=== PATIENT | female | born 1950 | race Caucasian/White ===

== ENCOUNTER → 2018-12-24 09:44 | Outpatient (CLI) | payer MEDICARE, OTHER, SELFPAY ==
--- NOTE | 2018-12-24 | DI.MG.S_ITS ---
BILATERAL DIGITAL SCREENING MAMMOGRAM 3D/2D WITH CAD: 12/24/2018 CLINICAL: Routine screening. Comparison is made to exams dated: 11/11/2017 mammogram, 11/10/2015 mammogram, and 10/08/2013 mammogram - [facility]. The tissue of both breasts is heterogeneously dense. This may lower the sensitivity of mammography. Current study was also evaluated with a Computer Aided Detection (CAD) system. No significant masses, calcifications, or other findings are seen in either breast. There has been no significant interval change. IMPRESSION: NEGATIVE There is no mammographic evidence of malignancy. A 1 year screening mammogram is recommended. This exam was interpreted at Station ID: [id number]. NOTE: For mammograms, a report in lay terms will be sent to the patient. Approximately 15% of breast malignancies will not be visualized mammographically. In the management of a palpable breast mass, a negative mammogram must not discourage biopsy of a clinically suspicious lesion. Electronically Signed By: Arturo aldana/mario alberto:12/24/2018 16:33:53 letter sent: Normal Exam ACR BI-RADS Category 1: Negative 3341F
== END ==
PROVIDERS: Family Provider Family Medicine; PCP Family Medicine; Visit Provider Family Medicine
DX: Z12.31 Encounter for screening mammogram for malignant neoplasm of breast (principal)
CPT/HCPCS: 77063; 77067

== ENCOUNTER → 2021-03-21 11:23 | Outpatient (CLI) | payer MEDICARE, OTHER, SELFPAY ==
--- NOTE | 2021-03-21 | DI.MG.S_ITS ---
BILATERAL DIGITAL SCREENING MAMMOGRAM 3D/2D WITH CAD: 03/21/2021 CLINICAL: Routine screening. Comparison is made to exams dated: 12/24/2018 mammogram, 11/11/2017 mammogram, and 11/10/2015 mammogram - [facility]. The tissue of both breasts is heterogeneously dense. This may lower the sensitivity of mammography. Current study was also evaluated with a Computer Aided Detection (CAD) system. No significant masses, calcifications, or other findings are seen in either breast. There has been no significant interval change. IMPRESSION: NEGATIVE There is no mammographic evidence of malignancy. A 1 year screening mammogram is recommended. This exam was interpreted at Station ID: [id number]. NOTE: For mammograms, a report in lay terms will be sent to the patient. Approximately 15% of breast malignancies will not be visualized mammographically. In the management of a palpable breast mass, a negative mammogram must not discourage biopsy of a clinically suspicious lesion. Electronically Signed By: Joe villeda/mario alberto:03/21/2021 14:40:20 letter sent: Normal Exam ACR BI-RADS Category 1: Negative 3341F
== END ==
PROVIDERS: Family Provider Family Medicine; PCP Student in an Organized Health Care Education/Training Program; Referring Provider Student in an Organized Health Care Education/Training Program; Visit Provider Student in an Organized Health Care Education/Training Program
DX: Z12.31 Encounter for screening mammogram for malignant neoplasm of breast (principal); M85.852 Other specified disorders of bone density and structure, left thigh; Z78.0 Asymptomatic menopausal state; E07.9 Disorder of thyroid, unspecified; Z82.62 Family history of osteoporosis
CPT/HCPCS: 77063; 77067; 77080

== ENCOUNTER → 2022-07-25 14:45 | Outpatient (CLI) | payer MEDICARE, OTHER, SELFPAY ==
--- NOTE | 2022-07-25 14:50 | DI.RAD.S_ITS ---
PROCEDURE: XR HIP W PEL IF DONE MARY MIN 4V INDICATIONS: HIP PAIN TECHNIQUE: AP pelvis with lateral view(s) of the bilateral hip(s). COMPARISON: None. FINDINGS: Bones: No fractures or dislocations. Right worse than left bilateral hip joint osteoarthritic changes are seen with superior joint space narrowing, subchondral sclerosis and small marginal osteophyte formation. No evidence of avascular necrosis of femoral head. Pelvic ring appears intact. No suspicious bony lesions. Soft tissues: The visualized bowel gas pattern is normal. No suspicious soft tissue calcifications. IMPRESSION: Right worse than left bilateral hip joint osteoarthritis. No hip fracture or dislocation. No evidence of avascular necrosis. Dictated by: Levi Nettles M.D. on 07/25/2022 at 15:28 Approved by: Levi Nettles M.D. on 07/25/2022 at 15:29
== END ==
PROVIDERS: Family Provider Family Medicine; PCP Family Medicine; Referring Provider Registered Nurse; Visit Provider Registered Nurse
DX: M25.552 Pain in left hip (principal); M25.551 Pain in right hip; M85.89 Other specified disorders of bone density and structure, multiple sites; M16.0 Bilateral primary osteoarthritis of hip
CPT/HCPCS: 73522

== ENCOUNTER → 2022-12-10 10:57 | Outpatient (CLI) | payer MEDICARE, OTHER, SELFPAY ==
--- NOTE | 2022-12-10 | DI.MG.S_ITS ---
BILATERAL DIGITAL SCREENING MAMMOGRAM 3D/2D WITH CAD: 12/10/2022 CLINICAL: Routine screening. Comparison is made to exams dated: 03/21/2021 mammogram, 12/24/2018 mammogram, and 11/11/2017 mammogram - [facility]. Both breasts are heterogeneously dense, which may obscure small masses (category c / 51-75% glandular tissue). Current study was also evaluated with a Computer Aided Detection (CAD) system. No significant masses, calcifications, or other findings are seen in either breast. There has been no significant interval change. IMPRESSION: NEGATIVE There is no mammographic evidence of malignancy. A 1 year screening mammogram is recommended. Based on the Tyrer Cuzick model (a risk assessment model) the patient's lifetime risk is 8.1% and her 10 year risk is 5.6%. According to the ACR, ACS, and NCCN guidelines, an annual breast MRI exam along with mammogram is recommended if the patient's lifetime risk is 20% or greater. This exam was interpreted at Station ID: [id number]. NOTE: For mammograms, a report in lay terms will be sent to the patient. Approximately 15% of breast malignancies will not be visualized mammographically. In the management of a palpable breast mass, a negative mammogram must not discourage biopsy of a clinically suspicious lesion. Electronically Signed By: Jacek sullivan/mario alberto:12/10/2022 12:10:26 letter sent: Normal Exam ACR BI-RADS Category 1: Negative 3341F
== END ==
PROVIDERS: Family Provider Family Medicine; PCP Registered Nurse; Referring Provider Registered Nurse; Visit Provider Registered Nurse
DX: Z12.31 Encounter for screening mammogram for malignant neoplasm of breast (principal)
CPT/HCPCS: 77063; 77067

== ENCOUNTER → 2023-05-21 11:29 | Outpatient (CLI) | payer MEDICARE, OTHER, SELFPAY ==
--- NOTE | 2023-05-21 | DI.RAD.S_ITS ---
Bone Density Report Name: NAVEEN SOLO Age: 73 Sex: Female Ethnicity: White Date of : 1950 Indication: osteopenia; monitoring treatment; Referring Provider: LUIS REYES Study: Bone densitometry was performed. Exam Date: May 21, 2023 Accession number: [id number] Bone Density: Region BMD T-score Z-score Classification AP Spine(L2, L4) 0.973 -0.9 1.4 Normal Femoral Neck (Left) 0.627 -2.0 -0.1 Osteopenia Total Hip (Left) 0.699 -2.0 -0.4 Osteopenia Femoral Neck (Right) 0.621 -2.1 -0.1 Osteopenia Total Hip (Right) 0.750 -1.6 0.1 Osteopenia Total Hip Mean 0.725 -1.8 -0.2 Osteopenia World Health Organization criteria for BMD impression classify patients as: Normal (T-score at or above -1.0), Osteopenia (T-score between -1.0 and -2.5), or Osteoporosis (T-score at or below -2.5). 10-year Fracture Risk: FRAX not reported because: Treated for osteoporosis Previous Exams: -- Region Exam Age BMD T-score BMD Change BMD Change Date g/cm2 vs Baseline vs Previous -- AP Spine (L2,L4) 05/21/2023 73 0.973 -0.9 0.029 (3.0%)# 0.029 (3.0%)# 03/21/2021 71 0.944 -1.2 Total Hip(Left) 05/21/2023 73 0.699 -2.0 0.044 (6.7%)# 0.044 (6.7%)# 03/21/2021 71 0.655 -2.3 Total Hip(Right) 05/21/2023 73 0.750 -1.6 0.066 (9.6%)# 0.066 (9.6%)# 03/21/2021 71 0.685 -2.1 -- *Denotes significance at 95% confidence level, LSC for AP Spine = 0.022 g/cm2, LSC for Total Hip = 0.027 g/cm2 # Denotes dissimilar scan types or analysis methods Impression: The patient has low bone mass, based on the Right Femoral Neck T-score. No significant bone loss was observed. Discussion: PATIENT UNDER TREATMENT WITH NO SIGNIFICANT BMD LOSS SINCE LAST EXAM. In an untreated patient, BMD typically declines with age. A lack of decline or gain is usually a sign that treatment is efficacious and fracture risk is reduced. It is important to ask patients whether they are taking their medications and to encourage continued and appropriate compliance with their osteoporosis therapies to reduce fracture risk. It is also important to review their risk factors and encourage appropriate calcium and vitamin D intakes, exercise, fall prevention and other lifestyle measures. Follow-Up: Consider a repeat BMD and Vertebral Fracture Assessment (VFA) exam in 2 years or sooner if medically necessary, to reassess this patient's status. Reported by: MARGARITA REGAN MD on 05/21/2023 11:55:00 AM.
== END ==
PROVIDERS: Family Provider Family Medicine; PCP Registered Nurse; Referring Provider Registered Nurse; Visit Provider Registered Nurse
DX: M85.89 Other specified disorders of bone density and structure, multiple sites (principal); Z78.0 Asymptomatic menopausal state; Z79.83 Long term (current) use of bisphosphonates
CPT/HCPCS: 77080

== ENCOUNTER → 2023-08-15 08:50 | Outpatient (CLI) | payer MEDICARE, OTHER, SELFPAY ==
--- NOTE | 2023-08-15 | DI.US.S_ITS ---
PROCEDURE: US THYROID INDICATIONS: Hypothyroidism, unspecified TECHNIQUE: Real-time scanning was performed of the thyroid gland, with image documentation. COMPARISON: None. FINDINGS: Right: Thyroid lobe measures 3.2 x 0.6 x 0.9 cm, and is homogeneous in echotexture. Left: Thyroid lobe measures 2.8 x 0.5 x 0.6 cm, and is homogenous in echotexture. Isthmus: 8 mm thick. IMPRESSION: Diffuse thyroid atrophy without focal mass. Dictated by: Dalila Graves M.D. on 08/15/2023 at 14:34 Approved by: Dalila Graves M.D. on 08/15/2023 at 14:34
== END ==
PROVIDERS: Family Provider Family Medicine; PCP Registered Nurse; Referring Provider Registered Nurse; Visit Provider Registered Nurse
DX: E03.9 Hypothyroidism, unspecified (principal)
CPT/HCPCS: 76536

== ENCOUNTER → 2024-10-14 07:48 | Outpatient (CLI) | payer MEDICARE, OTHER, SELFPAY ==
--- NOTE | 2024-10-14 | DI.MG.S_ITS ---
BILATERAL DIGITAL SCREENING MAMMOGRAM 3D/2D WITH CAD: 10/14/2024 CLINICAL: Routine screening. Comparison is made to exams dated: 12/10/2022 mammogram, 12/24/2018 mammogram, and 03/21/2021 mammogram - [facility]. The breasts are heterogeneously dense, which may obscure small masses (category c / 51-75% glandular tissue). Current study was also evaluated with a Computer Aided Detection (CAD) system. No significant masses, calcifications, or other findings are seen in either breast. There has been no significant interval change. IMPRESSION: NEGATIVE There is no mammographic evidence of malignancy. A 1 year screening mammogram is recommended. Based on the Tyrer Cuzick model (a risk assessment model) the patient's lifetime risk is 7.2% and her 10 year risk is 5.9%. According to the ACR, ACS, and NCCN guidelines, an annual breast MRI exam along with mammogram is recommended if the patient's lifetime risk is 20% or greater. This exam was interpreted at Station ID: [id number]. NOTE: For mammograms, a report in lay terms will be sent to the patient. Approximately 15% of breast malignancies will not be visualized mammographically. In the management of a palpable breast mass, a negative mammogram must not discourage biopsy of a clinically suspicious lesion. Electronically Signed By: Rasta santana/mario alberto:10/14/2024 17:36:17 letter sent: Normal Exam ACR BI-RADS Category 1: Negative
== END ==
PROVIDERS: Family Provider Family Medicine; PCP Registered Nurse; Referring Provider Registered Nurse; Visit Provider Registered Nurse
DX: Z12.31 Encounter for screening mammogram for malignant neoplasm of breast (principal); R92.333 Mammographic heterogeneous density, bilateral breasts
CPT/HCPCS: 77063; 77067

== ENCOUNTER 2025-08-05 09:10 | Day surgery (SDC) | payer MEDICARE, OTHER, SELFPAY ==
[2025-08-05 09:31] VITALS: BP 123/78; PULSE 75; RESP 16; TEMP 36.3; O2SAT 98
--- NOTE | 2025-08-05 09:40 | P.HP_ITS ---
History of Present Illness
--- NOTE | 2025-08-05 09:40 | PM.HP.IH.1 ---
History of Present Illness History of Present Illness Date Patient Seen: 08/05/25 Time Patient Seen: 09:41 Chief complaint: SDC Narrative: Elyssa is a 75-year-old woman here for a colonoscopy. Her last one was about 10 years ago and was normal. Her mother had colon cancer in her 80s. Meds Home Medications and Allergies Home Medications ?Medication ?Instructions ?Recorded ?Confirmed ?Type alendronate 70 mg tablet 70 mg PO 06/30/25 08/03/25 History cholecalciferol (vitamin D3) 50 50 mcg PO DAILY 06/30/25 08/03/25 History mcg (2,000 unit) capsule levothyroxine 75 mcg tablet 75 mcg PO DAILY disorder of 06/30/25 08/03/25 History thyroid gland mecobalamin (vitamin B12) 1,000 1,000 mcg PO DAILY 06/30/25 08/03/25 History mcg chewable tablet sodium,potassium,mag sulfates 17.5 See Rx Instructions PO .COMPLEX 06/30/25 08/03/25 Rx gram-3.13 gram-1.6 gram oral soln #354 mL (Suprep Bowel Prep Kit) peg 3350-electrolytes 236 240 ml PO Q10M #4,000 mL 08/02/25 08/03/25 Rx gram-22.74 gram-6.74 gram-5.86 gram solution (Golytely) Allergies Allergy/AdvReac Type Severity Reaction Status Date / Time iodine Allergy Unknown Hives Verified 08/03/25 08:35 Penicillins Allergy Unknown Diarrhea Verified 08/03/25 08:35 Exam Const General: healthy appearing Assessment & Plan Assessment and plan (1) Colon cancer screening: Status: Acute Plan Colonoscopy for colon cancer screening Time-Based Coding :: [TOTAL MINUTES] spent with patient and on the chart (including review of chart, obtaining history, exam, reviewing outside data, placing orders, documenting exam and treatment plan, and counseling patient) on [DATE]. PROFEE Feeder Loader Document charge(s): No
[2025-08-05] MEDS: LACTATED RINGERS 1,000 ML 42 ML IV (09:53)
--- NOTE | 2025-08-05 10:57 | P.OP.COLON_ITS ---
Operative Date/Time/Diagnoses
--- NOTE | 2025-08-05 10:57 | PM.OP.COLON ---
Operative Date/Time/Diagnoses Date of procedure: 08/05/25 Time of procedure: 10:57 Pre-op diagnosis: Colon cancer screening Post-op diagnosis: same Procedure & Clinicians Study performed: Colonoscopy Same procedure(s) as scheduled: Yes Surgeon: Arthur Baez Anesthesia Type: MAC +/- Procedure Notes Procedure in detail: Surgeon: Arthur Baez MD Anesthesia: Michelle Jackson CRNA Procedure: The patient was brought to the endoscopy suite, placed in left lateral decubitus position. The patient was connected to monitoring devices. A time-out was performed. Sedation was administered. Once the patient was adequately sedated, a digital rectal exam was performed and was normal. The scope was then inserted and advanced to the cecum where the appendiceal orifice was identified and photographed. The scope was then slowly withdrawn over greater than 6 minutes. The mucosa was thoroughly inspected. There were two small polyps in the distal transverse colon, each about 3 mm and both removed with cold snare and sent together. The scope was retroflexed in the rectum. No other abnormalities were found. The scope was straightened and removed. The patient was awakened and brought to recovery. Scope withdrawal time: 13 minutes Sedation time: 32 minutes Findings: Two distal transverse colon polyps, each about 3 mm Estimated Blood Loss: 5 Complications: none Post-procedure Disposition: PACU
[2025-08-05 10:58] VITALS: BP 100/58; PULSE 75; RESP 24; TEMP 36.2; O2SAT 93
[2025-08-05 11:00] VITALS: BP 97/57; PULSE 75; RESP 15; O2SAT 98
[2025-08-05 11:05] VITALS: BP 97/62; PULSE 75; RESP 16; O2SAT 99
== END 2025-08-05 11:25 | disposition home or self-care (01) ==
PROVIDERS: Family Provider Family Medicine; PCP Registered Nurse; Referring Provider Surgery; Visit Provider Surgery
PROC: 0DJD8ZZ Inspection of Lower Intestinal Tract, Via Natural or Artificial Opening Endoscopic (ICD-10-PCS; CPT 45378; principal; 2025-08-05 10:15)
DX: Z12.11 Encounter for screening for malignant neoplasm of colon (principal); Z80.0 Family history of malignant neoplasm of digestive organs
CPT/HCPCS: 45385; J2704; J7120

== ENCOUNTER 2025-08-10 08:15 | Outpatient (RCR) | payer MEDICARE, OTHER, SELFPAY ==
--- NOTE | 2025-06-27 10:40 | PT.OPPOC ---
Physical, Occupational & Speech Therapy At [facility] Current Diagnoses Other nondisplaced fracture of upper end of right humerus, initial encounter for closed fracture (06/27/25) Visit Care Team Role Provider Type EVE Waters Primary Care Provider Non-Staff Specialty: Family Practice Address: [facility], [facility] [place], [address] Email: Carolyn Rodas MD Family Provider Non-Staff Specialty: Medical Address: [address] [place] [address], [phone] Email: Marvin Colindres MD Attending Provider Physician Referring Provider Specialty: Orthopedic Surgery Address: [address] [place] [address], [id number] Email: [email or web address] Plan Of Care PT OP: Cervical/Upper Extremity Start: 06/27/25 08:05 Freq: Status: Active Protocol: Document 06/27/25 08:05 DOROTHY (Rec: 06/27/25 10:40 DOROTHY [id number]) Out-Patient Physical Therapy Visit Information Visit Information Visit Type Initial Evaluation Visit Start Time 08:15 Visit Stop Time 09:00 Visit Number 1 Number of PROVIDER RELATIONS MANAGER Visits 0 Progress Note Due 07/27/25 Precautions Precautions 05/26/2025 Orthopedics note: Nonweightbearing right upper extremity cleared to start working on passive motion of the right shoulder sling for comfort -however is encouraged start working out of the sling start physical therapy at the end of May follow up with Orthopedics in 4 weeks for repeat radiographs of the right shoulder; if doing well she will likely start active motion at that time. OP-PT Subjective Patient Comments Patient Comments History of current diagnosis: Patient reports she tripped over a flower pot on May 16 and fell directly on her R humerus which resulted in R comminuted fracture. Imaging: Comminuted fracture of the lateral anatomic neck with a transverse component extending across the surgical neck is minimally displaced. No definite progression osseous union since comparison exam only 6 days ago. Precautions: Passive range only. In sling majority of day. 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 Physical activities/ hobbies: Cleaning house, cooking, gardening and walking prior to injury. Pain location: R shoulder Pain description: ache Pain 0-10/10 (current): 0/10 Pain 0-10/10 (worst): 1/10 Pain 0-10/10 (best): 0/10 Aggravating: Has not attempted to raise arm actively Alleviating: rest Function prior to injury: Independent with all ADLs Function current: Independent with all ADLs - R handed, limited with reaching lifting, brushing teeth, eating. Patient goals: Return to prior level of function Patient Questionnaires Quick Dash- Upper Extremity Quick Dash UE Score 61.36 Quick Dash UE 60 to 79% Impaired (Score 60-79) Impairment Shoulder Goniometric Range of Motion Shoulder Measured in Degrees L Shoulder ROM WFL Yes Testing Position Supine Flexion 170 Abduction 175 External Rotation at 90 90 degrees Abduction Internal Rotation 40 Comments Passive: Flexion: 172 Abduction: 175 ER: 90 IR: 40 R Shoulder ROM WFL No Testing Position Supine Comments Passive: Flexion: 95 Abduction: 90 ER: 25 IR: 20 Therapeutic Exercises Sitting Exercises Flexion table slides Side right Reps/Minutes x10 Standing Exercises Scapular retraction Side right Reps/Minutes 2x10 Pendulumns Side right Reps/Minutes 2x10 Physical Therapy Assessment Goals Three Impairment R shoulder strength Short Term Goal (STG Patient will demonstrate a 3+/5 R shoulder flexion MMT ) in order to better function with lifting. STG Duration 3 weeks Wafer Fabrication Technician Goal (LTG) Patient will demonstrate a 4/5 R shoulder flexion MMT in order to better function with lifting. LTG Duration 6 weeks Two Impairment R shoulder gross function Short Term Goal (STG Patient will demonstrate a reduction in Quick Dash ) score to 50 points in order to show an increase in self -perceived function. STG Duration 3 weeks Wafer Fabrication Technician Goal (LTG) Patient will demonstrate a reduction in Quick Dash score to 40 points in order to show an increase in self -perceived function. LTG Duration 6 weeks One Impairment R shoulder AROM Short Term Goal (STG Patient will demonstrate an increase in R shoulder AROM ) to 110 degrees in order to better function with reaching. STG Duration 3 weeks Snf Goal (LTG) Patient will demonstrate an increase in R shoulder AROM to 170 degrees in order to better function with reaching. LTG Duration 6 weeks Assessment Summary Assessment Patient presenting to PT s/p R humeral fracture (see subjective section) on 05/14/2025. Functional deficits include reaching, lifting, and ADLs with R UE. Objective investigation revealed deficits in R shoulder ROM (See objective measures: flexion, abduction, ER, IR PROM). Strength and AROM were not assessed on this date due to bone healing timelines but AROM will be assessed when patient is cleared for AROM. Patient will benefit from PT to address deficits, guide progression through bone healing timeline, and return to prior level of function. Physical Therapy Plan Frequency and Duration Frequency of 2x/Week Treatment Duration of 12 treatment (weeks) Plan of Care Start 06/27/25 Date Plan of Care End 09/25/25 Date Next Visit Focus/Plan Next Note Type Treatment Note Next Visit Plan Continue with PROM as tolerated and initiate AAROM per orthopedic direction. Plan of Care Dates Plan of Care Start Date 06/27/25 Plan of Care End Date 09/25/25 Electronically Signed by: Norah Clemons, PT 06/27/25 [id number] If you are in agreement with this Plan of Care, please return a signed and dated copy. I have reviewed this Plan of Care and certify that the skilled therapy services above are required to meet the patient?s needs. Physician Signature Date Printed Name and Credentials Clinical Instructor Signature Printed Name and Credentials
--- NOTE | 2025-07-01 09:41 | PT.OTN ---
Current Diagnoses Other nondisplaced fracture of upper end of right humerus, initial encounter for closed fracture (07/01/25) Physical Therapy Treatment Note PT OP: Cervical/Upper Extremity Start: 06/27/25 08:05 Freq: Status: Active Protocol: Document 07/01/25 07:25 JLisa (Rec: 07/01/25 09:41 JZ [id number]) Out-Patient Physical Therapy Visit Information Visit Information Visit Type Treatment Note Visit Start Time 08:15 Visit Stop Time 09:00 Visit Number 2 Number of AIR/OCEAN EXPORT CLERK Visits 0 Progress Note Due 07/27/25 Precautions Precautions 07/01/2025: Updated note from orthopedics allows for AROM up to 90 degrees elevation. OP-PT Subjective Patient Comments Patient Comments Patient reports her shoulder has been feeling good. She has minimal pain and was cleared to start using her shoulder more in active range below 90 degrees. Therapeutic Exercises Sitting Exercises Abduction table slides Side right Reps/Minutes x40 Flexion table slides Side right Reps/Minutes x40 each direction Standing Exercises AROM Standing Exercise Flexion, abduction, ER Name Reps/Minutes x30 each direction Scapular retraction Side right Reps/Minutes 2x10 Pendulumns Side right Reps/Minutes 2x10 Physical Therapy Assessment Goals Three Impairment R shoulder strength Short Term Goal (STG Patient will demonstrate a 3+/5 R shoulder flexion MMT ) in order to better function with lifting. STG Duration 3 weeks Skilled Nursing Goal (LTG) Patient will demonstrate a 4/5 R shoulder flexion MMT in order to better function with lifting. LTG Duration 6 weeks Two Impairment R shoulder gross function Short Term Goal (STG Patient will demonstrate a reduction in Quick Dash ) score to 50 points in order to show an increase in self -perceived function. STG Duration 3 weeks Skilled Nursing Goal (LTG) Patient will demonstrate a reduction in Quick Dash score to 40 points in order to show an increase in self -perceived function. LTG Duration 6 weeks One Impairment R shoulder AROM Short Term Goal (STG Patient will demonstrate an increase in R shoulder AROM ) to 110 degrees in order to better function with reaching. STG Duration 3 weeks Enamel Applier Goal (LTG) Patient will demonstrate an increase in R shoulder AROM to 170 degrees in order to better function with reaching. LTG Duration 6 weeks Assessment Summary Assessment Treatment focused on shoulder AROM and AAROM. Patient tolerated treatment well with no lasting increases in pain levels. Plan next session to follow up on home exercises and track pain-free AROM. Also plan to initiate dowel AAROM. Physical Therapy Plan Frequency and Duration Frequency of 2x/Week Treatment Duration of 12 treatment (weeks) Plan of Care Start 06/27/25 Date Plan of Care End 09/25/25 Date Next Visit Focus/Plan Next Note Type Treatment Note Next Visit Plan Continue with PROM as tolerated and initiate AAROM per orthopedic direction.
--- NOTE | 2025-07-06 09:51 | PT.OTN ---
Current Diagnoses Other nondisplaced fracture of upper end of right humerus, initial encounter for closed fracture (07/06/25) Physical Therapy Treatment Note PT OP: Cervical/Upper Extremity Start: 06/27/25 08:05 Freq: Status: Active Protocol: Document 07/06/25 07:29 DORTOHY (Rec: 07/06/25 09:51 JLisa [id number]) Out-Patient Physical Therapy Visit Information Visit Information Visit Type Treatment Note Visit Start Time 09:10 Visit Stop Time 09:48 Visit Number 3 Number of HEALTH CARE ASSISTANT Visits 0 Progress Note Due 07/27/25 Precautions Precautions 07/01/2025: Updated note from orthopedics allows for AROM up to 90 degrees elevation. OP-PT Subjective Patient Comments Patient Comments Patient reports she has been doing her home exercises. Therapeutic Exercises Sitting Exercises Abduction table slides Side right Reps/Minutes x40 Flexion table slides Side right Reps/Minutes x40 each direction Standing Exercises Dowel ER Reps/Minutes x30 Dowel elevation Standing Exercise Dowel flexion, abduction Name Reps/Minutes x30 each direction AROM Standing Exercise Flexion, abduction, ER Name Reps/Minutes x30 each direction Physical Therapy Assessment Goals Three Impairment R shoulder strength Short Term Goal (STG Patient will demonstrate a 3+/5 R shoulder flexion MMT ) in order to better function with lifting. STG Duration 3 weeks Penitentiary Goal (LTG) Patient will demonstrate a 4/5 R shoulder flexion MMT in order to better function with lifting. LTG Duration 6 weeks Two Impairment R shoulder gross function Short Term Goal (STG Patient will demonstrate a reduction in Quick Dash ) score to 50 points in order to show an increase in self -perceived function. STG Duration 3 weeks Penitentiary Goal (LTG) Patient will demonstrate a reduction in Quick Dash score to 40 points in order to show an increase in self -perceived function. LTG Duration 6 weeks One Impairment R shoulder AROM Short Term Goal (STG Patient will demonstrate an increase in R shoulder AROM ) to 110 degrees in order to better function with reaching. STG Duration 3 weeks Penitentiary Goal (LTG) Patient will demonstrate an increase in R shoulder AROM to 170 degrees in order to better function with reaching. LTG Duration 6 weeks Assessment Summary Assessment Treatment focused on shoulder PROM and AROM in pain- free, allowed ranges. Patient tolerated treatment well with no increases in pain levels. Plan next session to continue with plan of care and progress AROM as appropriate. Physical Therapy Plan Frequency and Duration Frequency of 2x/Week Treatment Duration of 12 treatment (weeks) Plan of Care Start 06/27/25 Date Plan of Care End 09/25/25 Date Next Visit Focus/Plan Next Note Type Treatment Note Next Visit Plan Continue with PROM as tolerated and initiate AAROM per orthopedic direction.
--- NOTE | 2025-07-08 12:24 | PT.OTN ---
Current Diagnoses Other nondisplaced fracture of upper end of right humerus, initial encounter for closed fracture (07/08/25) Physical Therapy Treatment Note PT OP: Cervical/Upper Extremity Start: 06/27/25 08:05 Freq: Status: Active Protocol: Document 07/08/25 10:53 AB (Rec: 07/08/25 11:33 AB [id number]) Out-Patient Physical Therapy Visit Information Visit Information Visit Type Treatment Note Visit Start Time 10:53 Visit Stop Time 11:32 Visit Number 4 Number of DIRECTOR TRANSLATION Visits 1 Progress Note Due 07/27/25 Precautions Precautions 07/01/2025: Updated note from orthopedics allows for AROM up to 90 degrees elevation. OP-PT Subjective Patient Comments Patient Comments Patient reports she is better. AROM R shoulder flexion 85 deg start of session. Therapeutic Exercises Sidelying Exercises shoulder ER and IR Sidelying Exercise AROM UE at side HEP Name Side right Reps/Minutes X 15 each exercise Sitting Exercises AROM ER and IR Side bilateral Reps/Minutes X 15 Comments verbal and visual cues Abduction table slides Side right Reps/Minutes x20 Flexion table slides Side right Reps/Minutes x20 each direction Standing Exercises Dowel ER Reps/Minutes x30 Dowel elevation Standing Exercise Dowel flexion, abduction Name Reps/Minutes x10 each direction w/o then with back to wall Comments reports less discomfort lat/post delt area with back to wall AROM Standing Exercise Flexion, abduction, Name Reps/Minutes x10 each direction Comments back to wall for posture Scapular retraction Side bilateral Reps/Minutes 15 Physical Therapy Assessment Goals Three Impairment R shoulder strength Short Term Goal (STG Patient will demonstrate a 3+/5 R shoulder flexion MMT ) in order to better function with lifting. STG Duration 3 weeks Multimedia Developer Goal (LTG) Patient will demonstrate a 4/5 R shoulder flexion MMT in order to better function with lifting. LTG Duration 6 weeks Two Impairment R shoulder gross function Short Term Goal (STG Patient will demonstrate a reduction in Quick Dash ) score to 50 points in order to show an increase in self -perceived function. STG Duration 3 weeks Group Home Goal (LTG) Patient will demonstrate a reduction in Quick Dash score to 40 points in order to show an increase in self -perceived function. LTG Duration 6 weeks One Impairment R shoulder AROM Short Term Goal (STG Patient will demonstrate an increase in R shoulder AROM ) to 110 degrees in order to better function with reaching. STG Duration 3 weeks Group Home Goal (LTG) Patient will demonstrate an increase in R shoulder AROM to 170 degrees in order to better function with reaching. LTG Duration 6 weeks Assessment Summary Assessment AROM R shoulder flexion to 90 end of session. Physical Therapy Plan Frequency and Duration Frequency of 2x/Week Treatment Duration of 12 treatment (weeks) Plan of Care Start 06/27/25 Date Plan of Care End 09/25/25 Date Next Visit Focus/Plan Next Note Type Treatment Note Next Visit Plan Continue with PROM as tolerated and initiate AAROM per orthopedic direction.
--- NOTE | 2025-07-11 14:30 | PT.OTN ---
Current Diagnoses Other nondisplaced fracture of upper end of right humerus, initial encounter for closed fracture (07/11/25) Physical Therapy Treatment Note PT OP: Cervical/Upper Extremity Start: 06/27/25 08:05 Freq: Status: Active Protocol: Document 07/11/25 13:06 DOROTHY (Rec: 07/11/25 14:29 DOROTHY [id number]) Out-Patient Physical Therapy Visit Information Visit Information Visit Type Treatment Note Visit Start Time 13:05 Visit Stop Time 13:45 Visit Number 5 Number of RAILROAD CONDUCTOR Visits 0 Progress Note Due 07/27/25 Precautions Precautions 07/01/2025: Updated note from orthopedics allows for AROM up to 90 degrees elevation. OP-PT Subjective Patient Comments Patient Comments Patient reports her shoulder has been feeling good. She has no pain. Therapeutic Exercises Sitting Exercises AROM ER and IR Side bilateral Reps/Minutes X 15 Comments verbal and visual cues Abduction table slides Side right Reps/Minutes x20 Flexion table slides Side right Reps/Minutes x20 each direction Standing Exercises Dowel ER Reps/Minutes x20 at side, x20 at 90 degrees abduction Dowel elevation Standing Exercise Dowel flexion, abduction Name Reps/Minutes x30 each direction Comments reports less discomfort lat/post delt area with back to wall AROM Standing Exercise Flexion, abduction, Name Reps/Minutes x10 each direction to 90 degrees, then 10 to max AROM ( no symptoms reporte) Physical Therapy Assessment Goals Three Impairment R shoulder strength Short Term Goal (STG Patient will demonstrate a 3+/5 R shoulder flexion MMT ) in order to better function with lifting. STG Duration 3 weeks Longterm Goal (LTG) Patient will demonstrate a 4/5 R shoulder flexion MMT in order to better function with lifting. LTG Duration 6 weeks Two Impairment R shoulder gross function Short Term Goal (STG Patient will demonstrate a reduction in Quick Dash ) score to 50 points in order to show an increase in self -perceived function. STG Duration 3 weeks Dictating Machine Transcriber Goal (LTG) Patient will demonstrate a reduction in Quick Dash score to 40 points in order to show an increase in self -perceived function. LTG Duration 6 weeks One Impairment R shoulder AROM Short Term Goal (STG Patient will demonstrate an increase in R shoulder AROM ) to 110 degrees in order to better function with reaching. STG Duration 3 weeks Longterm Goal (LTG) Patient will demonstrate an increase in R shoulder AROM to 170 degrees in order to better function with reaching. LTG Duration 6 weeks Assessment Summary Assessment Treatment focused on PROM and AROM in symptom-free ranges. AROM range was progressed today up to 110 degrees with no pain, demonstrating progress. Plan next session to continue with AROM up to 110 degrees elevation and otherwise continue with current exercise program. Physical Therapy Plan Frequency and Duration Frequency of 2x/Week Treatment Duration of 12 treatment (weeks) Plan of Care Start 06/27/25 Date Plan of Care End 09/25/25 Date Next Visit Focus/Plan Next Note Type Treatment Note Next Visit Plan Continue with PROM as tolerated and initiate AAROM per orthopedic direction.
--- NOTE | 2025-08-03 10:47 | PT.OTN ---
Current Diagnoses Other nondisplaced fracture of upper end of right humerus, initial encounter for closed fracture (08/03/25) Physical Therapy Treatment Note PT OP: Cervical/Upper Extremity Start: 06/27/25 08:05 Freq: Status: Active Protocol: Document 08/03/25 07:30 AB (Rec: 08/03/25 08:15 AB [id number]) Out-Patient Physical Therapy Visit Information Visit Information Visit Type Treatment Note Visit Note Visit [email or web address]: [email or web address] Visit Start Time 07:32 Visit Stop Time 08:14 Visit Number 6 Number of WALLCOVERING TEXTURER Visits 1 Progress Note Due 09/02/25 Precautions Precautions 07/01/2025: Updated note from orthopedics allows for AROM up to 90 degrees elevation. OP-PT Subjective Patient Comments Patient Comments Patient reports she has a MD appointment at 8:30 today. Patient reports she understood she was to move UE as much as she could. Patient reports having no pain R UE. AROM R UE grossly 130 deg when making the above comment patient is moving R UE in flexion pattern. Patient reports she is still not lifting everything heavier than a cup of coffee. Patient reports she was also to avoid horizontal abd and has been avoiding this mvt. PT, Norah into session and advised to Measure full AROM without limitiations. Patient Questionnaires Quick Dash- Upper Extremity Quick Dash UE Score 18 Shoulder Goniometric Range of Motion Shoulder R Shoulder ROM WFL No Testing Position Standing Flexion 141 Extension 32 Abduction 109 Internal Rotation Thumb to T12 Behind Back (text) Comments moves into scaption pattern at 109 abd hand behind head thumb to C 4 Therapeutic Exercises Sitting Exercises AROM ER and IR Side bilateral Reps/Minutes X 10 Comments VC to perform slowly Abduction table slides Side right Reps/Minutes X 10 seated and X 10 standing Flexion table slides Side right Reps/Minutes X10 seated and X 10 standing Standing Exercises Row Standing Exercise bent row resting on L UE HEP Name Reps/Minutes X 10 Comments verbal and visual cues Dowel ER Reps/Minutes x10 at side, x10 at 90 degrees abduction Seated Dowel elevation Standing Exercise Dowel flexion, abduction Name Reps/Minutes x10 each direction Comments VC to keep UE on wall, monitored for pain AROM Standing Exercise Flexion, abduction, Name Reps/Minutes x10 each direction to 90 degrees, then 10 to max AROM ( no symptoms reporte) Physical Therapy Assessment Goals Three Impairment R shoulder strength Short Term Goal (STG Patient will demonstrate a 3+/5 R shoulder flexion MMT ) in order to better function with lifting. 08/03/2025 Not tested due to protocol restrictions ie no weight greater than coffee cup STG Duration 3 weeks Computer Typesetter Goal (LTG) Patient will demonstrate a 4/5 R shoulder flexion MMT in order to better function with lifting. LTG Duration 6 weeks Two Impairment R shoulder gross function Short Term Goal (STG Patient will demonstrate a reduction in Quick Dash ) score to 50 points in order to show an increase in self -perceived function. STG Duration 3 weeks Computer Typesetter Goal (LTG) Patient will demonstrate a reduction in Quick Dash score to 40 points in order to show an increase in self -perceived function. 08/03/2025 18% met LTG Duration 6 weeksMET One Impairment R shoulder AROM Short Term Goal (STG Patient will demonstrate an increase in R shoulder AROM ) to 110 degrees in order to better function with reaching. 08/03/2025 Met for flexion, 109 for abd then moves into scaption pattern STG Duration 3 weeks met for flexion and one deg shy of goal for abduction Computer Typesetter Goal (LTG) Patient will demonstrate an increase in R shoulder AROM to 170 degrees in order to better function with reaching. LTG Duration 6 weeks Assessment Summary Assessment ROM improving, strength limited by protocol limits, ie nothing heavier than coffee cup. Elyssa reports having no pain during todays session and reports she has been having no pain. Goal for quickdash met. Physical Therapy Plan Frequency and Duration Frequency of 2x/Week Treatment Duration of 12 treatment (weeks) Plan of Care Start 06/27/25 Date Plan of Care End 09/25/25 Date Next Visit Focus/Plan Next Note Type Treatment Note Next Visit Plan Continue with PROM as tolerated and initiate AAROM per orthopedic direction.
--- NOTE | 2025-08-03 15:44 | PT.OPPN ---
Current Diagnoses Other nondisplaced fracture of upper end of right humerus, initial encounter for closed fracture (08/03/25) Physical Therapy Progress Note PT OP: Cervical/Upper Extremity Start: 06/27/25 08:05 Freq: Status: Active Protocol: Document 08/03/25 15:38 JZ (Rec: 08/03/25 15:43 JZ [id number]) Out-Patient Physical Therapy Visit Information Visit Information Visit Type Treatment Note Visit Note Visit [email or web address] Access Code: [email or web address] Visit Start Time 07:32 Visit Stop Time 08:14 Visit Number 6 Number of HISTOLOGY SPECIALIST Visits 1 Progress Note Due 09/02/25 Precautions Precautions Per recent orthopedics note: - Slowly increase weight-bearing activities on the right upper extremity - Continue to work on aggressive range motion OP-PT Subjective Patient Comments Patient Comments Patient reports her shoulder has been improving in terms for ROM and function. She has had minimal symptoms for some time now. Patient Questionnaires Quick Dash- Upper Extremity Quick Dash UE Score 18 Physical Therapy Assessment Goals Three Impairment R shoulder strength Short Term Goal (STG Patient will demonstrate a 3+/5 R shoulder flexion MMT ) in order to better function with lifting. 08/03/2025 Not tested due to protocol restrictions ie no weight greater than coffee cup STG Duration 3 weeks Inspection Supervisor Goal (LTG) Patient will demonstrate a 4/5 R shoulder flexion MMT in order to better function with lifting. LTG Duration 6 weeks Two Impairment R shoulder gross function Short Term Goal (STG Patient will demonstrate a reduction in Quick Dash ) score to 50 points in order to show an increase in self -perceived function. 08/03/2025 18% met STG Duration 3 weeks Inspection Supervisor Goal (LTG) Patient will demonstrate a reduction in Quick Dash score to 40 points in order to show an increase in self -perceived function. 08/03/2025 18% met LTG Duration 6 weeksMET One Impairment R shoulder AROM Short Term Goal (STG Patient will demonstrate an increase in R shoulder AROM ) to 110 degrees in order to better function with reaching. 08/03/2025 Met for flexion, 109 for abd then moves into scaption pattern STG Duration 3 weeks met for flexion and one deg shy of goal for abduction Inspection Supervisor Goal (LTG) Patient will demonstrate an increase in R shoulder AROM to 170 degrees in order to better function with reaching. 08/03/2025 - In progress LTG Duration 6 weeks Assessment Summary Assessment Patient presenting to PT after 5 visits s/p R humerus fracture. Patient has made improvements with ROM and symptoms and was cleared to initiate weight bearing activities today. Objective investigation revealed improvement in ROM (see above). Patient will continue to benefit from PT to guide rehab and return to prior level of function. Physical Therapy Plan Frequency and Duration Frequency of 2x/Week Treatment Duration of 12 treatment (weeks) Plan of Care Start 06/27/25 Date Plan of Care End 09/25/25 Date Next Visit Focus/Plan Next Note Type Treatment Note Next Visit Plan Continue with PROM, AROM as tolerated, initiate gentle strengthening per updated ortho recommendation.
--- NOTE | 2025-08-10 10:32 | PT.OPDS ---
Current Diagnoses Other nondisplaced fracture of upper end of right humerus, initial encounter for closed fracture (08/10/25) Visit Care Team Role Provider Type EVE Waters Primary Care Provider Non-Staff Specialty: Family Practice Address: [address], [address], [place], [address] Email: Carolyn Rodas MD Family Provider Non-Staff Specialty: Medical Address: [address] [place] [address], [phone] Email: Marvin Colindres MD Attending Provider Physician Referring Provider Specialty: Orthopedic Surgery Address: [address] [place] [address], [id number] Email: [email or web address] Visit Number Visit Number 7 Discharge Summary PT OP: Cervical/Upper Extremity Start: 06/27/25 08:05 Freq: Status: Active Protocol: Document 08/10/25 07:27 DOROTHY (Rec: 08/10/25 10:30 DOROTHY [id number]) Out-Patient Physical Therapy Visit Information Visit Information Visit Type Discharge Summary Visit Note Visit [email or web address] Access Code: [email or web address] Visit Start Time 08:20 Visit Stop Time 09:00 Visit Number 7 Number of GENERAL CARGO CLERK Visits 1 Progress Note Due 09/02/25 Precautions Precautions Per recent orthopedics note: - Slowly increase weight-bearing activities on the right upper extremity - Continue to work on aggressive range motion OP-PT Subjective Patient Comments Patient Comments Patient reports she has been doing her exercises and is doing well. She would like for today to be her last formal PT session. Patient Questionnaires Quick Dash- Upper Extremity Quick Dash UE Score 6.8 Therapeutic Exercises Prone Exercises Plank position shoulder taps Reps/Minutes 3x10 Standing Exercises Band pull down extension Reps/Minutes 3x10 Band Abduction Resistance level 1 band Reps/Minutes 2x10 Band Flexion Resistance level 1 band Reps/Minutes 2x10 Band IR Resistance level 1 band Reps/Minutes 2x10 Band ER Resistance level 1 band Reps/Minutes 2x10 Physical Therapy Assessment Goals Three Impairment R shoulder strength Short Term Goal (STG Patient will demonstrate a 3+/5 R shoulder flexion MMT ) in order to better function with lifting. 08/10/2025 - Met STG Duration 3 weeks Fiberglass Quality Technician Goal (LTG) Patient will demonstrate a 4/5 R shoulder flexion MMT in order to better function with lifting. 08/10/2025 - Met LTG Duration 6 weeks Two Impairment R shoulder gross function Short Term Goal (STG Patient will demonstrate a reduction in Quick Dash ) score to 50 points in order to show an increase in self -perceived function. 08/03/2025 18% met STG Duration 3 weeks Fiberglass Quality Technician Goal (LTG) Patient will demonstrate a reduction in Quick Dash score to 40 points in order to show an increase in self -perceived function. 08/03/2025 18% met LTG Duration 6 weeksMET One Impairment R shoulder AROM Short Term Goal (STG Patient will demonstrate an increase in R shoulder AROM ) to 110 degrees in order to better function with reaching. 08/10/2025 - Met STG Duration 3 weeks met for flexion and one deg shy of goal for abduction Fiberglass Quality Technician Goal (LTG) Patient will demonstrate an increase in R shoulder AROM to 170 degrees in order to better function with reaching. 08/10/2025 - Met LTG Duration 6 weeks Assessment Summary Assessment Patient presenting to PT after 6 visits s/p R humerus fracture. She notes improvement with function and ROM and has recently starting noticing improvements with strength. Further investigation revealed improvements in shoulder ROM (see goal section) and function (See QuickDASH). Because of progress noted above, and patient desire to move towards independent management, today will be her last formal PT session. Treatment focused on reviewing home strengthening program for patient to continue with for continued progress. Physical Therapy Plan Frequency and Duration Frequency of 2x/Week Treatment Duration of 12 treatment (weeks) Plan of Care Start 06/27/25 Date Plan of Care End 09/25/25 Date Next Visit Focus/Plan Next Note Type Treatment Note Next Visit Plan Continue with PROM, AROM as tolerated, initiate gentle strengthening per updated ortho recommendation.
== END 2025-08-11 12:11 | disposition home or self-care (01) ==
LOC: PHYS 08:15
PROVIDERS: Family Provider Family Medicine; PCP Registered Nurse; Referring Provider Orthopaedic Surgery; Visit Provider Orthopaedic Surgery
DX: S42.294D Other nondisplaced fracture of upper end of right humerus, subsequent encounter for fracture with routine healing (principal)
CPT/HCPCS: 97110; 97161